=== PATIENT | male | born 1960 | race Caucasian/White ===

== ENCOUNTER 2022-11-14 20:56 | Inpatient (IN) | payer BC ==
[~2022-11-14 20:56] MED LIST: Iopamidol 300 61% 100 ML VIAL FS ONE
[2022-11-14] MEDS ORDERED: Ondansetron PF 4 MG/2 ML Vial ONE (21:48)
[2022-11-14] MEDS ORDERED: Morphine 4 MG/ML VIAL ONE (21:48)
[2022-11-14 22:16] LABS: #Monocytes 0.4 10x3/uL (0.0-1.1); #Neutrophils 9.2 10x3/uL (1.5-8.4); %Basophils 0.2 % (0.0-2.0); %Eosinophils 0.1 % (0.0-6.0); %Lymphocytes 3.6 % (18.0-47.0); %Monocytes 4.4 % (0.0-10.0); %Neutrophils 91.5 % (40.0-75.0); Hemoglobin 14.8 g/dL (13.5-17.5); Mean Corpuscular HGB CONC 34.6 g/dL (32.0-36.0); Mean Corpuscular Hemoglobin 31.8 pg (27.0-33.0); Mean Corpuscular Volume 91.8 fl (81.2-95.1); Mean Platelet Volume 10.3 fl (7.4-10.4); Platelet Count 326 10x3/uL (150-450); RBC Distribution Width 14.1 % (11.5-14.5); Red Blood Cell (RBC) Count 4.66 10x6/uL (4.32-5.72); White Blood Cell (WBC) Count 10.1 10x3/uL (3.5-10.5)
[2022-11-14 22:26] LABS: ALT (SGPT) 19 U/L (8-55); AST (SGOT) 22 U/L (5-34); Albumin 4.2 g/dL (3.4-4.8); Alkaline Phosphatase 76 U/L (40-110); Anion Gap 15 mmol/L (10-20); BUN (Urea Nitrogen) 16 mg/dL (8.4-25.7); Bilirubin, Total 0.8 mg/dL (0.2-1.2); Calc. Creatinine Clearance 0 mL/min (70-130); Calcium 8.9 mg/dL (7.8-10.44); Carbon Dioxide 22 mmol/L (23-31); Chloride 106 mmol/L (98-107); Estimated GFR 74; Globulin 2.6 g/dL (2.4-3.5); Glucose 131 mg/dL (80-115); Lipase 14 U/L (8-78); Protein, Total 6.8 g/dL (5.8-8.1); Sodium 139 mmol/L (136-145)
[2022-11-14] MEDS ORDERED: Ondansetron PF 4 MG/2 ML Vial IVP PRN (23:43)
[2022-11-14] MEDS ORDERED: Promethazine HCl 12.5 MG, Admixture Fee 1 EACH in Sodium Chloride 0.9% 50 ML IVPB PRN (23:45)
[2022-11-14] MEDS ORDERED: hydrALAZINE 20 MG/ML VIAL SLOW IVP PRN (23:47)
[2022-11-15] MEDS ORDERED: Morphine 4 MG/ML VIAL ONE ×2 (00:17→04:28)
[2022-11-15] MEDS ORDERED: Famotidine/PF 20 mg/2ml Vial ONE (00:17)
[2022-11-15] MEDS: Lactated Ringer's 1,000 ML IV SCH ×2 (00:20→12:59)
[2022-11-15] MEDS: Morphine 4 MG/ML VIAL SLOW IVP PRN ×2 (00:20→04:20)
[2022-11-15] MEDS ORDERED: Morphine 2 MG/ML VIAL SLOW IVP PRN (00:21)
[2022-11-15] MEDS ORDERED: Famotidine/PF 20 mg/2ml Vial SLOW IVP SCH (00:30)
[2022-11-15 03:17] LABS: Bilirubin Neg (Negative); Blood, Urine 150 (Negative); Clarity Clear (Clear); Glucose, Urine (Dipstick) Normal (Negative); Ketone, Urine Negative (Negative); Leukocyte Negative (Negative); Nitrite Negative (Negative); Protein, Urine (Dipstick) Negative (Neg-Trace); Specific Gravity, Urine 1.015 (1.005-1.030); Urobilinogen Normal mg/dL (Less than 2)
[2022-11-15 03:37] LABS: WBC/HPF 0-3 HPF (0-3)
[2022-11-15 03:38] LABS: Bacteria/HPF None Seen HPF (None Seen); Squamous Epithelial 0-3 HPF (0-3)
[2022-11-15 03:53] LABS: #Monocytes 0.5 10x3/uL (0.0-1.1); #Neutrophils 6.8 10x3/uL (1.5-8.4); %Basophils 0.2 % (0.0-2.0); %Eosinophils 0.1 % (0.0-6.0); %Lymphocytes 13.3 % (18.0-47.0); %Monocytes 5.8 % (0.0-10.0); %Neutrophils 80.4 % (40.0-75.0); Hemoglobin 13.1 g/dL (13.5-17.5); Mean Corpuscular HGB CONC 34.1 g/dL (32.0-36.0); Mean Corpuscular Hemoglobin 31.7 pg (27.0-33.0); Platelet Count 316 10x3/uL (150-450); RBC Distribution Width 14.5 % (11.5-14.5); Red Blood Cell (RBC) Count 4.13 10x6/uL (4.32-5.72); White Blood Cell (WBC) Count 8.5 10x3/uL (3.5-10.5)
[2022-11-15 04:05] LABS: Lactic Acid 1.3 mmol/L (0.5-2.2)
[2022-11-15 04:07] LABS: Anion Gap 16 mmol/L (10-20); BUN (Urea Nitrogen) 14 mg/dL (8.4-25.7); Calc. Creatinine Clearance 0 mL/min (70-130); Calcium 8.4 mg/dL (7.8-10.44); Carbon Dioxide 21 mmol/L (23-31); Chloride 107 mmol/L (98-107); Estimated GFR 80; Glucose 99 mg/dL (80-115); Magnesium 1.6 mg/dL (1.6-2.6); Potassium 4.1 mmol/L (3.5-5.1); Sodium 140 mmol/L (136-145)
[2022-11-15] MEDS ORDERED: GASTROGRAFIN 30 ML BOT ONE (10:00)
[2022-11-15 11:43] VITALS: BMI 28.0
[2022-11-15] MEDS: Famotidine/PF 20 mg/2ml Vial SLOW IVP SCH (12:59)
[2022-11-16] MEDS: Famotidine/PF 20 mg/2ml Vial SLOW IVP SCH ×2 (00:14→09:00)
[2022-11-16] MEDS: Lactated Ringer's 1,000 ML IV SCH ×2 (00:15→07:47)
[2022-11-16] MEDS: Morphine 4 MG/ML VIAL SLOW IVP PRN (00:22)
[2022-11-16 08:37] VITALS: BP 137/93; TEMP 98.1
== END 2022-11-16 11:45 | disposition home or self-care (01) | DRG 390 ==
LOC: CSHERS 20:56 → CSHERHOLD 23:43 → UNDOADMIN 11-15 00:18 → CSHERHOLD 11-15 00:18 → CSHTELE 11-15 09:29
PROVIDERS: ADMIT Student in an Organized Health Care Education/Training Program; ATTEND Family Medicine
DX: K56.609 Unspecified intestinal obstruction, unspecified as to partial versus complete obstruction (principal); E86.0 Dehydration; G89.29 Other chronic pain; I10 Essential (primary) hypertension; E78.5 Hyperlipidemia, unspecified; K21.9 Gastro-esophageal reflux disease without esophagitis; J45.909 Unspecified asthma, uncomplicated; F32.A Depression, unspecified; M19.90 Unspecified osteoarthritis, unspecified site; F41.9 Anxiety disorder, unspecified; Z85.46 Personal history of malignant neoplasm of prostate; Z79.899 Other long term (current) drug therapy; Z98.890 Other specified postprocedural states; Z87.891 Personal history of nicotine dependence; Z90.81 Acquired absence of spleen
CPT/HCPCS: 74018; 74177; 74250; 80048; 80053; 81001; 83605; 83690; 83735; 84443; 85025; 93005; 96361; 96374; 96375; J1650; J2270; J2272; J2405; J7120; Q9963; Q9967; S0028